=== PATIENT | male | born 2000 | race Caucasian/White ===

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

== ENCOUNTER 2022-01-15 16:23 | Emergency (ER) | payer BC, MEDICAID, SELFPAY ==
[2022-01-15 16:30] VITALS: BP 122/82; PULSE 73; RESP 13; TEMP 36.9; O2SAT 97; BMI 2831.5
--- NOTE | 2022-01-15 16:43 | USR_ITS ---
PROCEDURE INFORMATION: Exam: US Scrotum Exam date and time: 01/15/2022 4:59 PM Age: 21 years old Clinical indication: Scrotum pain; Prior surgery; Surgery date: 6+ months; Surgery type: RT testicle removed; Additional info: L testicle pain; R/O torsion, history of right testicle removal due to torsion in the past TECHNIQUE: Imaging protocol: Real-time ultrasound of the scrotum and contents with color Doppler and image documentation. COMPARISON: US Testicular [id number] 02/27/2018 6:51 PM FINDINGS: Right testicle: Status post right orchiectomy. Left testicle: Left testis measures 4.7 x 2.1 x 2.8 cm. The testis is normal in echotexture. No focal testicular lesion is demonstrated. Appropriate blood flow documented by Doppler. Epididymides: Left epididymis is unremarkable. Scrotum/soft tissues: No hydrocele or varicocele demonstrated on the left side. US/US scrotum [id number] IMPRESSION: 1. Status post right orchiectomy. 2. Sonographically normal left testis. No evidence of left testicular torsion.
--- NOTE | 2022-01-15 16:45 | ED_ITS ---
HPI - Male Genitourinary General: Chief complaint: Urogenital-Male Stated complaint: pain in testical area Time Seen by Provider: 01/15/22 16:35 Source: patient Mode of arrival: ambulatory Limitations: no limitations History of Present Illness: Patient with complaints of left testicle pain for the past 4 days. She states the pain is mild. Denies any dysuria, hematuria, penile discharge. 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 Denies any other medical problems. He takes no routine medications. He is allergic to peanuts but no medications. Denies any trauma. He states he just wants to get checked out because of his history of orchiectomy in the past for torsion. Associated symptoms: Deny nausea or vomiting Review of Systems Const: Denies: fever(s) or chills Card: Denies: chest pain Resp: Denies: dyspnea GI: Denies: abdominal pain, nausea or vomiting : Denies: flank pain Musc: Denies: back pain Skin/Breast: Denies: rash or pruritus Neuro: Denies: headache(s) or numbness in extremities PFSH ED PFSH: Family History Father Cystic acne Severe cystic acne with scarring. Social History Smoking and tobacco status: never smoked Supplemental [facility] Information: Past surgical history of right orchiectomy for torsion Physical Exam Const: COMMON NORMALS: no acute distress, patient oriented x3, alert and well nourished GENERAL APPEARANCE: cooperative HENMT: COMMON NORMALS: normocephalic and atraumatic HEAD & SCALP: normocephalic and atraumatic Eye: COMMON NORMALS: EOMs intact bilaterally Neck/C-Spine: COMMON NORMALS: full ROM and supple Lymph: OTHER: Patient with shotty mobile soft nontender lymphadenopathy in both inguinal areas. Chest: COMMONS NORMALS: normal inspection of the chest and normal palpation of entire chest wall Resp: COMMON NORMALS: normal respiratory effort, No retractions, No use of accessory muscles and clear to auscultation bilaterally AUSCULTATION: clear to auscultation bilaterally Cardio: COMMON NORMALS: regular rate, regular rhythm and Peripheral pulses 2+ throughout RATE: regular rate RHYTHM: regular rhythm PERIPHERAL PULSES: Peripheral pulses 2+ throughout GI: COMMON NORMALS: Normal to inspection, nondistended, normoactive bowel sounds present, Soft to palpation and non-tender PALPATION: Yes Soft to palpation : OTHER: Circumcised male. Penis is normal. Patient has 1 testicle on the left. No testicle on the right. Mild tenderness of the left testicle. No pain in the epididymis. No soft tissue swelling. Scrotum is normal. No hernia palpated. Extremity: COMMON NORMALS: normal to inspection and full ROM Neuro: COMMON NORMALS: patient oriented x3, CN's II-XII intact bilaterally, moves all extremities, no focal motor deficits and no sensory deficits noted SENSORIUM/ORIENTATION: Yes alert Psych: COMMON NORMALS: mental status grossly normal, Normal thought process present, cooperative, normal affect and speech normal SPEECH: Yes normal speech THOUGHT PROCESS: Normal thought process present Skin: COMMON NORMALS: no rashes or lesions noted GENERAL SKIN EXAM: no rashes or lesions noted Course Vital Signs: Vital signs: Vital Signs Temperature 98.5 F 01/15/22 16:30 Pulse Rate 73 01/15/22 16:30 Respiratory Rate 13 01/15/22 16:30 Blood Pressure 122/82 01/15/22 16:30 Pulse Oximetry 97 01/15/22 16:30 Oxygen Delivery Me thod 01/15/22 16:30 MDM - Male Medical Decision Making Orchitis versus testicular torsion versus epididymitis. Lymphadenitis not otherwise specified Lab Data Radiology Impressions Scrotum Ultrasound 01/15/22 16:43 IMPRESSION: 1. Status post right orchiectomy. 2. Sonographically normal left testis. No evidence of left testicular torsion. Laboratory Results Urine Color Dark yellow (Yellow) 01/15/22 17:05 Urine Appearance Clear (CLEAR) 01/15/22 17:05 Urine pH 5 (5-7) 01/15/22 17:05 Ur Specific [place] 1.020 (1.005-1.030) 01/15/22 17:05 Urine Protein 1+ (Negative) H 01/15/22 17:05 Urine Glucose (UA) Norm (Normal) 01/15/22 17:05 Urine Ketones 1+ (Negative) H 01/15/22 17:05 Urine Blood Neg (Negative) 01/15/22 17:05 Urine Nitrate Negative (Negative) 01/15/22 17:05 Urine Bilirubin 1+ (Negative) H 01/15/22 17:05 Urine Urobilinogen 1 mg/dL (Negative) H 01/15/22 17:05 Ur Leukocyte Esterase Trace (Negative) H 01/15/22 17:05 Urine RBC None /hpf (0-2) 01/15/22 17:05 Urine WBC 0-4 /hpf (0-5) H 01/15/22 17:05 Ur Squamous Epith Cells None /hpf (0-5) 01/15/22 17:05 Amorphous Sediment Not Reportable 01/15/22 17:05 Urine Bacteria Trace /hpf (NONE) 01/15/22 17:05 Imaging Data US: Radiologist's impression: Testicular ultrasound showed nothing acute. No evidence of torsion. Flow was normal. Discharge Plan Discharge Patient Disposition: Home Clinical Impression: Pain in left testicle Condition: Stable Prescriptions: New naproxen 375 mg tablet 375 mg PO BID PRN (Reason: pain) Qty: 14 1RF No Action clindamycin phosphate 1 % solution 1 applic topical DAILY Qty: 60 3RF Discharge Orders: Discharge ED (Routine); Ordered 01/15/22 Ordered By: Braydon Wallace Discharge Diet: Advance as tolerated Discharge Activity: Increase activity as tolerated Patient Instructions: Testicle Pain (ED) Activity Restrictions/Additional Instructions: You may have a viral infection causing left testicle pain. You have been mildly enlarged lymph nodes in your groin. Take naproxen or ibuprofen for pain. Do not take both together. Follow-up with family doctor next week if symptoms persist. Ultrasound of your testicle appeared normal. Coding Level of Care Code ED Mri Supervisor for Chg Fwd Exam Comprehensive
[2022-01-15 17:48] LABS: Bilirubin Urine 1+ (Negative); Blood Urine Neg (Negative); Glucose Urine UA Norm (Normal); Ketones Urine 1+ (Negative); Leukocyte Esterase Urine Trace (Negative); Nitrate Urine Negative (Negative); Protein Urine 1+ (Negative); Urine Appearance Clear (CLEAR); Urine Color Dark Yellow (Yellow); Urobilinogen Urine 1 mg/dL (Negative); pH Urine 5 (5-7)
[2022-01-15 17:56] LABS: Bacteria Urine TRACE /hpf; WBC Urine 0-4 /hpf (0-5)
[2022-01-15 17:57] LABS: Add Urine Culture? No
[2022-01-15 19:05] VITALS: PULSE 77; RESP 14; O2SAT 99
[2022-01-15] MEDS: ketorolac 30 mg/mL INJ IM (19:12)
[2022-01-15 19:14] VITALS: PULSE 77; RESP 14; O2SAT 99
== END 2022-01-15 19:12 | disposition home or self-care (01) ==
PROVIDERS: Emergency Provider Family Medicine
DX: N50.812 Left testicular pain (principal)
CPT/HCPCS: 76870; 81001; 87491; 87591; 96372; 99285; J1885

== ENCOUNTER 2022-09-23 16:20 | Emergency (ER) | payer MEDICAID, SELFPAY ==
[2022-09-23 16:30] VITALS: BP 150/83; PULSE 56; RESP 16; TEMP 36.7; O2SAT 98; BMI 19.0
--- NOTE | 2022-09-23 16:51 | USR_ITS ---
PROCEDURE INFORMATION: Exam: US Scrotum Exam date and time: 09/23/2022 5:32 PM Age: 22 years old Clinical indication: Scrotum pain; Prior surgery; Surgery date: 6+ months; Surgery type: RT testicle removed; Additional info: Pain/trouble urinating TECHNIQUE: Imaging protocol: Real-time ultrasound of the scrotum and contents with color Doppler and image documentation. COMPARISON: US scrotum [id number] 01/15/2022 4:59 PM FINDINGS: Right testicle: Removed Left testicle: Measures 4.7 x 2.2 x 2.8 cm. No mass. No torsion. Normal vascular flow. Epididymides: Normal. Scrotum/soft tissues: Normal. US/US scrotum [id number] IMPRESSION: There are no acute concerning abnormalities.
--- NOTE | 2022-09-23 16:51 | ED_ITS ---
Documented by User: THAIS Maldonado 09/24/22 07:51 HPI - Male Genitourinary General: Chief complaint: Urogenital-Male Stated complaint: not able to urinate Time Seen by Provider: 09/23/22 16:41 Source: patient Mode of arrival: ambulatory Limitations: no limitations History of Present Illness: Patient is a 22-year-old male who presents to ED today with complaints of vague urinary symptoms. Patient states over the past several weeks he has intermittently had times where he felt like he was not able to initiate his urine stream. He states he has experienced some urinary dribbling. He states it seems harder to urinate when he is standing and finds that often times when he sits down that he can urinate easier. He rarely has the feeling of incomplete bladder emptying although he states while at work he feels like it is even more so difficulty to urinate and thus does feel like he doesn't empty his bladder and often feels like he needs to go again shortly after voiding. Interestingly, he states that while he is at home alone he feels like urination is easier. He denies dysuria. He has not noticed any hematuria. Denies any problems with erections/ejaculation. He does report some mild left testicular tenderness. He is status post right orchidectomy from [facility] back in 2018. Complaint: other (trouble urinating) Onset (ago): week(s) Duration: intermittent Severity: mild Relieving factors: other (being at home, sitting while urinating ) Exacerbating factors: other (public places, standing) Associated symptoms: Deny dysuria, hematuria, nausea, urinary incontinence or vomiting Review of Systems Const: Denies: fever(s), chills, body aches, fatigue or malaise Card: Denies: chest pain Resp: Denies: dyspnea GI: Denies: abdominal pain, nausea, vomiting or diarrhea : Reports: difficulty urinating, urinary hesitancy, urinary dribbling, difficulty starting urination and testicular pain; Denies: flank pain, dysuria, urinary frequency, nocturia, oliguria, urinary incontinence, hematuria, genital lesions, penile discharge, testicular mass, scrotal swelling, difficulty with ejactulations, painful ejaculations, hematospermia or erectile dysfunction Musc: Denies: back pain Skin/Breast: Denies: rash Neuro: Denies: headache(s) or dizziness [facility] ED PFSH: Family History Father Cystic acne Severe cystic acne with scarring. Social History Smoking and tobacco status: never smoked Physical Exam Const: COMMON NORMALS: no acute distress, average body habitus, patient oriented x3, no limitations, healthy appearing, alert and well nourished GEN ERAL APPEARANCE: cooperative ORIENTATION/CONSCIOUSNESS: Yes awake, Yes oriented to person, Yes oriented to place and Yes oriented to time Resp: COMMON NORMALS: normal respiratory effort and clear to auscultation bilaterally AUSCULTATION: clear to auscultation bilaterally Cardio: COMMON NORMALS: regular rate and regular rhythm RATE: regular rate RHYTHM: regular rhythm GI: COMMON NORMALS: Normal to inspection, nondistended, normoactive bowel sounds present, Soft to palpation, non-tender, No hepatosplenomegaly present and no masses PALPATION: Yes Soft to palpation and Yes No hepatosplenomegaly present : COMMON NORMALS: Yes no CVA tenderness, Yes normal external exam, Yes no scrotal swelling and Yes No hernias present BLADDER/KIDNEY EXAM: Yes no CVA tenderness PENIS: normal penis and circumcised MEATUS: meatus normal SCROTUM: Yes other (previous right orchiectomy) TESTES: No testicular swell ing, Yes testicular tenderness Testicular tenderness laterality: left, No testicular mass, Yes epididymides normal and No epididymal tenderness Back/Pelvis: COMMON NORMALS: no CVA tenderness LUMBAR SPINE/LOWER BACK: No lumbar spinal tenderness and No paraspinal muscle tenderness Neuro: COMMON NORMALS: patient oriented x3 SENSORIUM/ORIENTATION: Yes alert, Yes oriented to person, Yes oriented to place and Yes oriented to time Skin: COMMON NORMALS: no rashes or lesions noted GENERAL SKIN EXAM: no rashes or lesions noted Course ED course: At this time 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 Clinically I do not appreciate any abnormalities. Care at this time is being transferred to Deepali Jewell NP pending blood work/UA/scrotal ultrasound/postvoid residual volume testing. Plan most likely will be for urology referral for further workup if indicated. Vital Signs: Vital signs: Vital Signs Temperature 98.1 F 09/23/22 16:30 Pulse Rate 56 L 09/23/22 20:35 Respiratory Rate 16 09/23/22 20:35 Blood Pressure 144/107 09/23/22 20:35 Pulse Oximetry 93 09/23/22 20:35 Oxygen Delivery Me thod Room Air 09/23/22 16:30 MDM - Male Lab Data 09/23/22 16:54 09/23/22 16:54 Radiology Impressions Scrotum Ultrasound 09/23/22 16:51 IMPRESSION: There are no acute concerning abnormalities. Laboratory Results WBC 9.4 10^3/uL (4.5-13.0) 09/23/22 16:54 RBC 4.86 10^6/uL (4.1-5.3) 09/23/22 16:54 Hgb 14.5 g/dL (11.7-16.6) 09/23/22 16:54 Hct 44.3 % (42.0-52.0) 09/23/22 16:54 MCV 91.2 fl (80-94) 09/23/22 16:54 MCH 29.8 pg (28.0-34.0) 09/23/22 16:54 MCHC 32.7 g/dL (30.0-36.0) 09/23/22 16:54 RDW 12.8 % (12.1-15.1) 09/23/22 16:54 Plt Count 339 10^3/cmm (130-400) 09/23/22 16:54 MPV 8.3 fL (7.4-10.4) 09/23/22 16:54 Neut % (Auto) 52.6 % 09/23/22 16:54 Lymph % (Auto) 32.4 % 09/23/22 16:54 [place] % (Auto) 6.4 % 09/23/22 16:54 Eos % (Auto) 8.1 % 09/23/22 16:54 Baso % (Auto) 0.3 % 09/23/22 16:54 Neut # (Auto) 4.95 10^3/uL (1.8-8.0) 09/23/22 16:54 Lymph # (Auto) 3.1 10^3/uL (1.5-6.5) 09/23/22 16:54 [place] # (Auto) 0.6 10^3/uL (0.2-0.9) 09/23/22 16:54 Eos # (Auto) 0.8 10^3/uL (0.0-0.8) 09/23/22 16:54 Baso # (Auto) 0.0 10^3/uL (0.0-0.1) 09/23/22 16:54 Nucleated RBC % (auto) 0 % 09/23/22 16:54 Nucleated RBCs # 0.0 /100WBC 09/23/22 16:54 Sodium 138 mmol/L (136-145) 09/23/22 16:54 Potassium 3.6 mmol/L (3.5-5.1) 09/23/22 16:54 Chloride 100 mmol/L (98-107) 09/23/22 16:54 Carbon Dioxide 26 mmol/L (22-29) 09/23/22 16:54 Anion Gap 15.6 (5-19) 09/23/22 16:54 BUN 16 mg/dL (6-20) 09/23/22 16:54 Creatinine 1.0 mg/dL (0.7-1.2) 09/23/22 16:54 GFR Calculation 95.3 mL/min (90-130) 09/23/22 16:54 Glucose 95 mg/dL (65-115) 09/23/22 16:54 Calculated Osmolality 287 mOsm/kg (285-295) 09/23/22 16:54 Calcium 9.6 mg/dL (8.5-10.5) 09/23/22 16:54 Total Bilirubin 0.3 mg/dL (0.15-1.2) 09/23/22 16:54 AST 36 U/L (0-40) 09/23/22 16:54 ALT 22 U/L (0-41) 09/23/22 16:54 Alkaline Phosphatase 94 U/L (40-130) 09/23/22 16:54 Total Protein 7.6 g/dL (6.6-8.7) 09/23/22 16:54 Albumin 4.6 g/dL (3.5-5.2) 09/23/22 16:54 Globulin 3.0 g/dL (1.3-4.6) 09/23/22 16:54 Urine Color Yellow (Yellow) 09/23/22 18:30 Urine Appearance Clear (CLEAR) 09/23/22 18:30 Urine pH 6.5 (5-7) 09/23/22 18:30 Ur Specific [place] 1.010 (1.005-1.030) 09/23/22 18:30 Urine Protein Neg (Negative) 09/23/22 18:30 Urine Glucose (UA) Norm (Normal) 09/23/22 18:30 Urine Ketones Negative (Negative) 09/23/22 18:30 Urine Blood Neg (Negative) 09/23/22 18:30 Urine Nitrate Negative (Negative) 09/23/22 18:30 Urine Bilirubin Neg (Negative) 09/23/22 18:30 Urine Urobilinogen Norm mg/dL (Negative) 09/23/22 18:30 Ur Leukocyte Esterase Negative (Negative) 09/23/22 18:30 Discharge Plan Discharge Patient Disposition: Home Clinical Impression: Dysuria Condition: Stable Prescriptions: No Action clindamycin phosphate 1 % solution 1 applic topical DAILY Qty: 60 3RF naproxen 375 mg tablet 375 mg PO BID PRN (Reason: pain) Qty: 14 1RF Discharge Orders: Discharge ED (Routine); Ordered 09/23/22 Ordered By: Serina Sanchez Discharge Diet: Advance as tolerated Discharge Activity: Resume usual activity Patient Instructions: Dysuria (ED), Pain Management Activity Restrictions/Additional Instructions: We have set up a case management consult. Our case planner will be working to secure a primary care as well as urology referral. Please return to the emergency department for new concerning or worsening symptoms Coding Level of Care Code ED Window Treatment Installer for Chg Fwd Documented by User: [email or web address] Christianson 09/24/22 17:15 HPI - Male Genitourinary General: Chief complaint: Urogenital-Male Stated complaint: not able to urinate Time Seen by Provider: 09/23/22 16:41 [facility] ED PFSH: Family History Father Cystic acne Severe cystic acne with scarring. Social History Smoking and tobacco status: never smoked Course Vital Signs: Vital signs: Vital Signs Temperature 98.1 F 09/23/22 16:30 Pulse Rate 56 L 09/23/22 20:35 Respiratory Rate 16 09/23/22 20:35 Blood Pressure 144/107 09/23/22 20:35 Pulse Oximetry 93 09/23/22 20:35 Oxygen Delivery Me thod Room Air 09/23/22 16:30 MDM - Male Medical Decision Making Tosin PRN OCCUPATIONAL THERAPIST assumed care at 1700. At the time of my assumption of care, patient was awaiting ultrasound scrotum results and the patient to void. Her son completed and reveals no acute findings. Initially had 297 cc on initial bladder scan. Urinalysis was collected on void and postvoid residual is 3 ml. Patient I had a discussion about his symptomology and his concerns. Ultimately he has no signs of infection, no abnormalities on ultrasound, and is not retaining any urine. I am going to set him up with a PCP referral as well as urology referral. I have asked him to return to the emergency department should he develop any new concerning or worsening symptoms. Lab Data 09/23/22 16:54 09/23/22 16:54 Radiology Impressions Scrotum Ultrasound 09/23/22 16:51 IMPRESSION: There are no acute concerning abnormalities. Laboratory Results WBC 9.4 10^3/uL (4.5-13.0) 09/23/22 16:54 RBC 4.86 10^6/uL (4.1-5.3) 09/23/22 16:54 Hgb 14.5 g/dL (11.7-16.6) 09/23/22 16:54 Hct 44.3 % (42.0-52.0) 09/23/22 16:54 MCV 91.2 fl (80-94) 09/23/22 16:54 MCH 29.8 pg (28.0-34.0) 09/23/22 16:54 MCHC 32.7 g/dL (30.0-36.0) 09/23/22 16:54 RDW 12.8 % (12.1-15.1) 09/23/22 16:54 Plt Count 339 10^3/cmm (130-400) 09/23/22 16:54 MPV 8.3 fL (7.4-10.4) 09/23/22 16:54 Neut % (Auto) 52.6 % 09/23/22 16:54 Lymph % (Auto) 32.4 % 09/23/22 16:54 [place] % (Auto) 6.4 % 09/23/22 16:54 Eos % (Auto) 8.1 % 09/23/22 16:54 Baso % (Auto) 0.3 % 09/23/22 16:54 Neut # (Auto) 4.95 10^3/uL (1.8-8.0) 09/23/22 16:54 Lymph # (Auto) 3.1 10^3/uL (1.5-6.5) 09/23/22 16:54 [place] # (Auto) 0.6 10^3/uL (0.2-0.9) 09/23/22 16:54 Eos # (Auto) 0.8 10^3/uL (0.0-0.8) 09/23/22 16:54 Baso # (Auto) 0.0 10^3/uL (0.0-0.1) 09/23/22 16:54 Nucleated RBC % (auto) 0 % 09/23/22 16:54 Nucleated RBCs # 0.0 /100WBC 09/23/22 16:54 Sodium 138 mmol/L (136-145) 09/23/22 16:54 Potassium 3.6 mmol/L (3.5-5.1) 09/23/22 16:54 Chloride 100 mmol/L (98-107) 09/23/22 16:54 Carbon Dioxide 26 mmol/L (22-29) 09/23/22 16:54 Anion Gap 15.6 (5-19) 09/23/22 16:54 BUN 16 mg/dL (6-20) 09/23/22 16:54 Creatinine 1.0 mg/dL (0.7-1.2) 09/23/22 16:54 GFR Calculation 95.3 mL/min (90-130) 09/23/22 16:54 Glucose 95 mg/dL (65-115) 09/23/22 16:54 Calculated Osmolality 287 mOsm/kg (285-295) 09/23/22 16:54 Calcium 9.6 mg/dL (8.5-10.5) 09/23/22 16:54 Total Bilirubin 0.3 mg/dL (0.15-1.2) 09/23/22 16:54 AST 36 U/L (0-40) 09/23/22 16:54 ALT 22 U/L (0-41) 09/23/22 16:54 Alkaline Phosphatase 94 U/L (40-130) 09/23/22 16:54 Total Protein 7.6 g/dL (6.6-8.7) 09/23/22 16:54 Albumin 4.6 g/dL (3.5-5.2) 09/23/22 16:54 Globulin 3.0 g/dL (1.3-4.6) 09/23/22 16:54 Urine Color Yellow (Yellow) 09/23/22 18:30 Urine Appearance Clear (CLEAR) 09/23/22 18:30 Urine pH 6.5 (5-7) 09/23/22 18:30 Ur Specific [place] 1.010 (1.005-1.030) 09/23/22 18:30 Urine Protein Neg (Negative) 09/23/22 18:30 Urine Glucose (UA) Norm (Normal) 09/23/22 18:30 Urine Ketones Negative (Negative) 09/23/22 18:30 Urine Blood Neg (Negative) 09/23/22 18:30 Urine Nitrate Negative (Negative) 09/23/22 18:30 Urine Bilirubin Neg (Negative) 09/23/22 18:30 Urine Urobilinogen Norm mg/dL (Negative) 09/23/22 18:30 Ur Leukocyte Esterase Negative (Negative) 09/23/22 18:30 Discharge Plan Discharge Patient Disposition: Home Clinical Impression: Dysuria Condition: Stable Prescriptions: No Action clindamycin phosphate 1 % solution 1 applic topical DAILY Qty: 60 3RF naproxen 375 mg tablet 375 mg PO BID PRN (Reason: pain) Qty: 14 1RF Discharge Orders: Discharge ED (Routine); Ordered 09/23/22 Ordered By: Serina Sanchez Discharge Diet: Advance as tolerated Discharge Activity: Resume usual activity Patient Instructions: Dysuria (ED), Pain Management Activity Restrictions/Additional Instructions: We have set up a case management consult. Our case planner will be working to secure a primary care as well as urology referral. Please return to the emergency department for new concerning or worsening symptoms Coding Level of Care Code ED Window Treatment Installer for Yen Cui
[2022-09-23 16:58] LABS: Basophils % 0.3 %; Eosinophils # 0.8 10^3/uL (0.0-0.8); Eosinophils % 8.1 %; Hematocrit 44.3 % (42.0-52.0); Hemoglobin 14.5 g/dL (11.7-16.6); Lymphocytes # 3.1 10^3/uL (1.5-6.5); Lymphocytes % 32.4 %; Mean Corpuscular HGB Conc 32.7 g/dL (30.0-36.0); Mean Corpuscular Hemoglobin 29.8 pg (28.0-34.0); Mean Corpuscular Volume 91.2 fl (80-94); Mean Platelet Volume 8.3 fL (7.4-10.4); Monocytes # 0.6 10^3/uL (0.2-0.9); Monocytes % 6.4 %; Neutrophils # 4.95 10^3/uL (1.8-8.0); Neutrophils % 52.6 %; Nucleated Red Blood Cells % 0 %; Platelet Count 339 10^3/cmm (130-400); Red Blood Count 4.86 10^6/uL (4.1-5.3); Red Cell Distribution Width 12.8 % (12.1-15.1); White Blood Count 9.4 10^3/uL (4.5-13.0)
[2022-09-23 17:20] LABS: Alanine Aminotransferase 22 U/L (0-41); Albumin Level 4.6 g/dL (3.5-5.2); Alkaline Phosphatase 94 U/L (40-130); Anion Gap 15.6 (5-19); Aspartate Amino Transferase 36 U/L (0-40); Blood Urea Nitrogen 16 mg/dL (6-20); Calcium 9.6 mg/dL (8.5-10.5); Carbon Dioxide 26 mmol/L (22-29); Chloride 100 mmol/L (98-107); Glomerular Filtration Rate 95.3 mL/min (90-130); Glucose 95 mg/dL (65-115); Osmolality Calculated 287 mOsm/kg (285-295); Potassium 3.6 mmol/L (3.5-5.1); Sodium 138 mmol/L (136-145); Total Bilirubin 0.3 mg/dL (0.15-1.2); Total Protein 7.6 g/dL (6.6-8.7)
[2022-09-23 19:53] LABS: Add Urine Microscopic? NO; Charge for UA Resulting for Rev
[2022-09-23 19:56] LABS: Bilirubin Urine Neg (Negative); Blood Urine Neg (Negative); Glucose Urine UA Norm (Normal); Ketones Urine Negative (Negative); Leukocyte Esterase Urine Negative (Negative); Nitrate Urine Negative (Negative); Protein Urine Neg (Negative); Urine Appearance Clear (CLEAR); Urine Color Yellow (Yellow); Urobilinogen Urine Norm (Negative); pH Urine 6.5 (5-7)
[2022-09-23 20:35] VITALS: BP 144/107; PULSE 56; RESP 16; O2SAT 93
--- NOTE | 2022-09-26 14:50 | DCPLANNER ---
slot shift manager had message to schedule a follow up appointment for patient with urology. slot shift manager spoke with patients father to confirm where the referral needed to be sent. Patients father stated to send the referral to [facility], rn case manager hospice faxed patients information to the [facility] clinic, it will be reviewed, clinic will call patient with appointment information. slot shift manager called patient due to no primary care physician, spoke with patients father, who declined at this time.
== END 2022-09-23 20:38 | disposition home or self-care (01) ==
PROVIDERS: Physician Assistant; Emergency Provider Nurse Practitioner
DX: R30.0 Dysuria (principal)
CPT/HCPCS: 36415; 51798; 76870; 80053; 81003; 85025; 99284

== ENCOUNTER 2023-02-11 07:45 | Emergency (ER) | payer MEDICAID, SELFPAY ==
--- NOTE | 2023-02-11 07:47 | ECG_ITS ---
[facility] Test Date: 2023-02-11 Pat Name: Jeremiah Balbuena Department: Room: Gender: Male Custom Miller: : 2000 Requested By: Jordyn Wong Order Number: [id number] Josephine MD: Brittany Francisco M.D. Measurements Intervals [place] Rate: 114 P: 76 HI: 134 QRS: 104 QRSD: 87 T: 63 QT: 293 QTc: 403 Interpretive Statements SINUS TACHYCARDIA POSSIBLE LEFT ATRIAL ENLARGEMENT [-0.1mV P-WAVE IN V1/V2] RIGHT AXIS DEVIATION [QRS AXIS > 100] POSSIBLE RIGHT VENTRICULAR CONDUCTION DELAY [RSR (QR) IN V1/V2] No previous ECG available for comparison Electronically Signed On 02-11-2023 18:43:26 ELECTRONIC INDUSTRI[employer]S MECHANIC by Brittany Francisco M.D. [id number]
--- NOTE | 2023-02-11 07:47 | XRR_ITS ---
PROCEDURE INFORMATION: Exam: XR Chest Exam date and time: 02/11/2023 8:05 AM Age: 22 years old Clinical indication: Pain; Chest pressure; Additional info: Cp TECHNIQUE: Imaging protocol: Radiologic exam of the chest. Views: 1 view. COMPARISON: CR XR soft tissue neck [id number] 11/28/2016 8:16 PM FINDINGS: Lungs: Lungs are clear. Pleural spaces: There is no pleural effusion or pneumothorax. Heart/Mediastinum: Cardiomediastinal contours are unremarkable. Bones/joints: Bones are unremarkable. XR/XR chest 1V portable [id number] IMPRESSION: No acute findings.
[2023-02-11 07:48] VITALS: BP 131/88; PULSE 118; RESP 18; TEMP 37; O2SAT 93; BMI 19.6
--- NOTE | 2023-02-11 07:56 | ED_ITS ---
HPI - COVID 2 General: Chief Complaint: COVID symptoms Stated Complaint: chest pain,sob Time Seen by Provider: 02/11/23 07:47 Source: patient Mode of arrival: ambulatory Limitations: no limitations History of Present Illness: 22-year-old male states for last 2 days has had cough congestion and has had low-grade fevers. States that he has had some worsening dyspnea along with wheezing he states he feels like he cannot get a breath then. He is having some sharp pains he states after coughing. Denies vomiting denies diarrhea he is in no distress here. COVID 19 common symptoms: positive non-productive cough and dyspnea; negative fever(s), chills, body aches, headache(s), throat pain, nausea, vomiting or diarrhea COVID 19 other sytmptoms: positive chest pain COVID Results: 2 SARS-CoV-2 Antigen (Rapid) negative (Negative) 02/11/23 08:30 Review of Systems 2 Const: Denies: fever(s), chills, body aches or change in appetite ENMT: Denies: throat pain or dental pain Card: Reports: chest pain Resp: Reports: dyspnea, non-productive cough and wheezing GI: Denies: abdominal pain, nausea, vomiting or diarrhea : Denies: dysuria Musc: Denies: neck pain or back pain Skin/Breast: Denies: rash Neuro: Denies: headache(s) PFSH ED 2 PFSH: Family History Father Cystic acne Severe cystic acne with scarring. Social History Smoking and tobacco/nicotine status: current every day tobacco/nicotine user Substance/Drug Use: current Substance/Drug use frequency: daily Physical Exam 2 Const: COMMON NORMALS: no acute distress, patient oriented x3 and healthy appearing HENMT: COMMON NORMALS: normocephalic and atraumatic HEAD & SCALP: n ormocephalic and atraumatic Eye: COMMON NORMALS: Equal, round and reactive pupils present and EOMs intact bilaterally PUPIL: Yes Equal, round and reactive pupils present Neck/C-Spine: COMMON NORMALS: full ROM and supple Chest: COMMONS NORMALS: normal inspection of the chest Resp: COMMON NORMALS: normal respiratory effort, No retractions and No use of accessory muscles EFFORT & INSPECTION: Yes audible wheezes AUSCULTATION: w heezes Cardio: COMMON NORMALS: regular rate, regular rhythm and No murmurs present (Cardio) RATE: regular rate RHYTHM: regular rhythm Extremity: COMMON NORMALS: normal to inspection and full ROM Neuro: COMMON NORMALS: patient oriented x3, moves all extremities and no focal motor deficits Psych: COMMON NORMALS: mental status grossly normal, Normal thought process present and cooperative THOUGHT PROCESS: Normal thought process present Skin: COMMON NORMALS: no rashes or lesions noted and no wounds GENERAL SKIN EXAM: no rashes or lesions noted Course 2 Vital Signs: Vital signs: Vital Signs Temperature 98.6 F 02/11/23 07:48 Pulse Rate 87 02/11/23 09:47 Respiratory Rate 16 02/11/23 09:47 Blood Pressure 121/70 02/11/23 09:47 Pulse Oximetry 92 02/11/23 09:47 Oxygen Delivery Me thod Room Air 02/11/23 09:47 MDM - COVID Medical Decision Making Patient presents here with upper respiratory infection. Chest x-ray here is negative he feels much improved here after breathing treatment did give him Decadron he is stable for discharge we will place him on an albuterol inhaler he is follow-up with PCP and return if worsening. Medical Records I reviewed the patient's medical records. Lab Data I reviewed the patient's lab results. 02/11/23 08:05 02/11/23 08:05 Radiology Impressions Chest X-Ray 02/11/23 07:47 IMPRESSION: No acute findings. Laboratory Results WBC 12.52 10^3/uL (4.5-13.0) 02/11/23 08:05 RBC 5.67 10^6/uL (3.85-5.65) H 02/11/23 08:05 Hgb 17.00 g/dL (13.2-15.6) H 02/11/23 08:05 Hct 49.4 % (37-53) 02/11/23 08:05 MCV 87.1 fl (82-101) 02/11/23 08:05 MCH 30.0 pg (27-33) 02/11/23 08:05 MCHC 34.4 g/dL (30-55) 02/11/23 08:05 RDW 11.9 % (12.1-15.1) L 02/11/23 08:05 Plt Count 371 10^3/cmm (157-399) 02/11/23 08:05 MPV 8.8 fL (7.4-10.4) 02/11/23 08:05 Neut % (Auto) 62.6 % 02/11/23 08:05 Lymph % (Auto) 18.0 % 02/11/23 08:05 Winn % (Auto) 9.9 % 02/11/23 08:05 Eos % (Auto) 9.1 % 02/11/23 08:05 Baso % (Auto) 0.2 % 02/11/23 08:05 Neut # (Auto) 7.83 10^3/uL (1.8-8.0) 02/11/23 08:05 Lymph # (Auto) 2.3 10^3/uL (1.5-6.5) 02/11/23 08:05 Winn # (Auto) 1.2 10^3/uL (0.2-0.9) H 02/11/23 08:05 Eos # (Auto) 1.1 10^3/uL (0.0-0.8) H 02/11/23 08:05 Baso # (Auto) 0.0 10^3/uL (0.0-0.1) 02/11/23 08:05 Nucleated RBC % (auto) 0 % 02/11/23 08:05 Nucleated RBCs # 0.0 /100WBC 02/11/23 08:05 Sodium 139 mmol/L (136-145) 02/11/23 08:05 Potassium 4.3 mmol/L (3.5-5.1) 02/11/23 08:05 Chloride 98 mmol/L (98-107) 02/11/23 08:05 Carbon Dioxide 27 mmol/L (22-29) 02/11/23 08:05 Anion Gap 18.3 (5-19) 02/11/23 08:05 BUN 13 mg/dL (6-20) 02/11/23 08:05 Creatinine 1.4 mg/dL (0.7-1.2) H 02/11/23 08:05 GFR Calculation 64.6 mL/min (90-130) L 02/11/23 08:05 Glucose 112 mg/dL (65-115) 02/11/23 08:05 Calculated Osmolality 289 mOsm/kg (285-295) 02/11/23 08:05 Calcium 10.3 mg/dL (8.5-10.5) 02/11/23 08:05 Total Bilirubin 0.4 mg/dL (0.15-1.2) 02/11/23 08:05 AST 46 U/L (0-40) H 02/11/23 08:05 ALT 40 U/L (0-41) 02/11/23 08:05 Alkaline Phosphatase 101 U/L (40-130) 02/11/23 08:05 Total Protein 9.0 g/dL (6.6-8.7) H 02/11/23 08:05 Albumin 4.9 g/dL (3.5-5.2) 02/11/23 08:05 Globulin 4.1 g/dL (1.3-4.6) 02/11/23 08:05 Influenza Type A Ag negative (Negative) 02/11/23 08:30 Influenza Type B Ag negative (Negative) 02/11/23 08:30 SARS-CoV-2 Ag (Rapid) negative (Negative) 02/11/23 08:30 2 SARS-CoV-2 Antigen (Rapid) negative (Negative) 02/11/23 08:30 All radiology interpretation(s) finalized by discharge EKG Data EKG 1: I personally reviewed and interpreted this EKG as follows: EKG interpretation date: 02/11/23 EKG interpretation time: 07:49 Interpretation: sinus tach hr [address] or t wave abnormalities qrs 87 qtc 360 Discharge Plan Discharge Patient Disposition: Home Clinical Impression: Upper respiratory infection Qualifiers: URI type: unspecified URI Qualified Code(s): J06.9 - Acute upper respiratory infection, unspecified Condition: Stable Prescriptions: Continued Ventolin HFA 90 mcg/actuation HFA aerosol inhaler 2 puff inhalation Q6H PRN (Reason: shortness of breath or wheezing) Qty: 8.5 0RF No Action azithromycin 250 mg tablet See Rx Instructions PO .COMPLEX Qty: 6 0RF Rx Instructions: take 500 mg today (day 1), then 250 mg for 4 days (days 2-5) PO prednisone 20 mg tablet 20 mg PO DAILY 5 Days Qty: 5 0RF Discharge Orders: Discharge ED (Routine); Ordered 02/11/23 Ordered By: Jordyn Wong Discharge Diet: Advance as tolerated Discharge Activity: Resume usual activity Patient Instructions: Upper Respiratory Infection (ED) Coding Level of Care Code ED Trim Machine Adjuster for Yen Cui
[2023-02-11 08:13] VITALS: O2SAT 93
[2023-02-11] MEDS: albuterol 2.5 mg/3 mL Neb INHALATION (08:13)
[2023-02-11 08:15] VITALS: PULSE 113; RESP 18; O2SAT 95
[2023-02-11] MEDS: ipratropium-albuterol 3 mL Neb INHALATION (08:15)
[2023-02-11 08:18] VITALS: PULSE 120
[2023-02-11 08:20] LABS: Basophils % 0.2 %; Eosinophils # 1.1 10^3/uL (0.0-0.8); Eosinophils % 9.1 %; Hematocrit 49.4 % (37-53); Lymphocytes # 2.3 10^3/uL (1.5-6.5); Mean Corpuscular HGB Conc 34.4 g/dL (30-55); Mean Corpuscular Volume 87.1 fl (82-101); Mean Platelet Volume 8.8 fL (7.4-10.4); Monocytes # 1.2 10^3/uL (0.2-0.9); Monocytes % 9.9 %; Neutrophils # 7.83 10^3/uL (1.8-8.0); Neutrophils % 62.6 %; Nucleated Red Blood Cells % 0 %; Platelet Count 371 10^3/cmm (157-399); Red Blood Count 5.67 10^6/uL (3.85-5.65); Red Cell Distribution Width 11.9 % (12.1-15.1); White Blood Count 12.52 10^3/uL (4.5-13.0)
[2023-02-11] MEDS: sodium chloride 0.9% 1,000 ML 999 ML IV (08:28)
[2023-02-11] MEDS: dexamethasone 10 mg/mL INJ IVP (08:29)
[2023-02-11 08:49] LABS: Alanine Aminotransferase 40 U/L (0-41); Albumin Level 4.9 g/dL (3.5-5.2); Alkaline Phosphatase 101 U/L (40-130); Anion Gap 18.3 (5-19); Aspartate Amino Transferase 46 U/L (0-40); Blood Urea Nitrogen 13 mg/dL (6-20); Calcium 10.3 mg/dL (8.5-10.5); Carbon Dioxide 27 mmol/L (22-29); Chloride 98 mmol/L (98-107); Globulin 4.1 g/dL (1.3-4.6); Glomerular Filtration Rate 64.6 mL/min (90-130); Glucose 112 mg/dL (65-115); Osmolality Calculated 289 mOsm/kg (285-295); Potassium 4.3 mmol/L (3.5-5.1); Sodium 139 mmol/L (136-145); Total Bilirubin 0.4 mg/dL (0.15-1.2)
--- NOTE | 2023-02-11 09:05 | PC.NURSE ---
RN ASSUMED CARE AT THIS TIME
[2023-02-11 09:47] VITALS: BP 121/70; PULSE 87; RESP 16; O2SAT 92
[2023-02-11 09:54] LABS: Influenza A by IFA negative (Negative); Influenza B by IFA negative (Negative); SARS Covid-2 Antigen negative (Negative)
== END 2023-02-11 10:22 | disposition home or self-care (01) ==
PROVIDERS: Emergency Provider Emergency Medicine
DX: J06.9 Acute upper respiratory infection, unspecified (principal); Z11.52 Encounter for screening for COVID-19; Z72.0 Tobacco use
CPT/HCPCS: 71045; 80053; 85025; 87426; 87804; 93005; 94640; 96361; 96374; 99285; J1100; J7030; J7613

== ENCOUNTER → 2023-09-21 08:28 | Outpatient (BNVA) | payer MEDICAID, SELFPAY | PROVIDERS: Visit Provider Internal Medicine | DX: D75.1 Secondary polycythemia (principal); I10 Essential (primary) hypertension | CPT/HCPCS: 99204 ==

== ENCOUNTER 2023-09-28 09:06 | Outpatient (CLI) | payer MEDICAID, SELFPAY ==
[2023-09-28 09:51] LABS: Basophils % 0.3 %; Eosinophils # 0.9 10^3/uL (0.0-0.8); Eosinophils % 11.6 %; Hematocrit 43.2 % (37-53); Lymphocytes # 2.8 10^3/uL (0.8-4.8); Lymphocytes % 35.7 %; Mean Corpuscular Hemoglobin 30.4 pg (27-33); Mean Corpuscular Volume 89.3 fl (82-101); Mean Platelet Volume 8.4 fL (7.4-10.4); Monocytes # 0.5 10^3/uL (0.2-0.9); Monocytes % 6.2 %; Neutrophils # 3.56 10^3/uL (1.8-7.7); Neutrophils % 46.1 %; Nucleated Red Blood Cells % 0 %; Platelet Count 387 10^3/cmm (157-399); Red Blood Count 4.84 10^6/uL (3.85-5.65); Red Cell Distribution Width 12.4 % (12.1-15.1); White Blood Count 7.73 10^3/uL (3.29-11.43)
[2023-09-28 10:25] LABS: Alanine Aminotransferase 20 U/L (0-41); Albumin Level 4.7 g/dL (3.5-5.2); Alkaline Phosphatase 99 U/L (40-130); Aspartate Amino Transferase 23 U/L (0-40); Blood Urea Nitrogen 11 mg/dL (6-20); Calcium 9.5 mg/dL (8.5-10.5); Carbon Dioxide 28 mmol/L (22-29); Globulin 3.3 g/dL (1.3-4.6); Glomerular Filtration Rate 94.3 mL/min (90-130); Glucose 103 mg/dL (65-115); Prostate Specific Antigen Scr 0.47 ng/mL (0-4); Testosterone Total 344.6 ng/dL (249-836); Total Bilirubin 0.4 mg/dL (0.15-1.2)
[2023-09-28 10:54] LABS: Follicle Stimulating Hormone 9.1 mIU/mL (1.5-12.4); Luteinizing Hormone 4.6 mIU/mL (1.7-8.6)
[2023-09-28 11:11] LABS: Anion Gap 16.8 (5-19); Chloride 104 mmol/L (98-107); Osmolality Calculated 300 mOsm/kg (285-295); Potassium 3.8 mmol/L (3.5-5.1); Sodium 145 mmol/L (136-145)
[2023-10-03 15:39] LABS: Testosterone, Free 36.8 pg/mL (46.0-224.0)
== END 2023-09-28 09:07 | disposition home or self-care (01) ==
LOC: LAB 09:09
PROVIDERS: Visit Provider Internal Medicine
DX: D75.1 Secondary polycythemia (principal); I10 Essential (primary) hypertension
CPT/HCPCS: 36415; 80053; 83001; 83002; 84402; 84403; 85025; G0103

== ENCOUNTER 2024-10-22 13:25 | Emergency (ER) | payer SELFPAY ==
--- OUTSIDE RECORDS SUMMARY | 2011-08-01 08:50 | XMS_ITS | Continuity of Care Document ---
Author Organization [facility] Address [address] [place] [address] Phone Care Team Providers Care Diamond Die Driller Name Role Phone Jose Francisco Ho MD Unavailable Unavailable Allergies, Adverse Reactions, Alerts Substance Reaction Status Criticality No Known allergies Advance Directives Directive Yes / No Effective Date File Name No Information Encounters Encounter Description Practice Location Reason(s) For Visit Diagnoses Date Provider Providers Copied on Encounter [facility] , [address], [address], tel:[phone] [facility] Lt BBFAfx w/manipulat ion (chief complaint) Fracture of shaft of radius with ulna, closed Vic Felton. [address], [place], [place], [id number]. tel:[phone] Referring Provider: Ayan Pearson [address], [place], [address] . tel:[phone] [facility] , [address] [address], [place], [address], tel:[phone] [facility] Fracture of lower end of radius with ulna, closed Vic Felton. [address], [place], [place], [id number]. tel:[phone] Referring Provider: Ayan Pearson [address] [facility] [address], [place], [address] . tel:[phone] Family History Family Member Type Diagnosis Age At Onset Problem (finding) Family history of hyper tension Payers Payer name Insurance type Covered constitution party ID Authoriza tion(s) No Information Social History Type Description Quantity Date Captured Comments Sex Male Smoking Status No Information Chief Complaint And Reason For Visit From encounter dated '08/01/2011 13:50'. Lt BBFAfx w/manipulation (chief complaint) Reason For Referral Reason For Referral No Information Plan Of Treatment Date Type Action Status Referral Ordered: RADEX F/ARM 2 VIEWS LT ordered History Of Present Illness Encounter Date Complaint History Of Prese nt Illness No Information Functional Status Date Functional Assessmen t No Information Instructions Date Instruction Additional Infor mation No Information Assessments Type Assessment Date No Information Patient Care Teams Name Effective Dates (start - stop) Status Members No Information
[2024-10-22 13:29] VITALS: BP 116/73; PULSE 93; RESP 16; TEMP 36.8; O2SAT 97; BMI 19.1
--- OUTSIDE RECORDS SUMMARY | 2024-10-22 13:34 | XMS_ITS | Encounter Summary ---
Author Organization [facility] Address [address] [place] [address] Care Team Providers Care Sheet Writer Name Role Phone Ayan Pearson MD Primary Care Provider Tammy vailable Encounter Details Date Type Department Care Team (Late st Contact Info) Description 2000 Outpatient [facility] 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
--- OUTSIDE RECORDS SUMMARY | 2024-10-22 13:34 | XMS_ITS | Encounter Summary ---
Author Organization [facility] Address [address] [place] [address] Care Team Providers Care Last Repairer Helper Name Role Phone Ayan Pearson MD Primary Care Provider Tammy vailable Encounter Details Date Type Department Care Team (Late st Contact Info) Description 05/21/2003 Outpatient Historical [facility] [address] 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
--- OUTSIDE RECORDS SUMMARY | 2024-10-22 13:34 | XMS_ITS | Encounter Summary ---
Author Organization [facility] Address 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
--- OUTSIDE RECORDS SUMMARY | 2024-10-22 13:34 | XMS_ITS | Encounter Summary ---
Author Organization [facility] Address [address] [place] [address] Care Team Providers Care Animal Geneticist Name Role Phone Ayan Pearson MD Primary Care Provider Tammy vailable Encounter Details Date Type Department Care Team (Late st Contact Info) Description 07/18/2006 Outpatient Historical [facility] [address] 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
--- OUTSIDE RECORDS SUMMARY | 2024-10-22 13:34 | XMS_ITS | Encounter Summary ---
Author Organization [facility] Address [address] [place] [address] Care Team Providers Care Therapeutic Riding Instructor Name Role Phone Ayan Pearson MD Primary Care Provider Tammy vailable Encounter Details Date Type Department Care Team (Late st Contact Info) Description 2002 Outpatient Historical [facility] [address] 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
--- OUTSIDE RECORDS SUMMARY | 2024-10-22 13:34 | XMS_ITS | Encounter Summary ---
Author Organization [facility] Address [address] [place] [address] Care Team Providers Care Online Journalist Name Role Phone Ayan Pearson MD Primary Care Provider Tammy vailable Encounter Details Date Type Department Care Team (Late st Contact Info) Description 05/25/2006 Outpatient Historical [facility] [address] 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
--- OUTSIDE RECORDS SUMMARY | 2024-10-22 13:34 | XMS_ITS | Encounter Summary ---
Author Organization [facility] Address [address] [place] [address] Care Team Providers Care Potato Chip Processing Supervisor Name Role Phone Ayan Pearson MD Primary Care Provider Tammy vailable Encounter Details Date Type Department Care Team (Late st Contact Info) Description 02/04/2003 Outpatient Historical [facility] [address] 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
--- OUTSIDE RECORDS SUMMARY | 2024-10-22 13:34 | XMS_ITS | Encounter Summary ---
Author Organization [facility] Address [address] [place] [address] Care Team Providers Care Group Sales Manager Name Role Phone Ayan Pearson MD Primary Care Provider Tammy vailable Encounter Details Date Type Department Care Team (Late st Contact Info) Description 08/18/2003 Outpatient Historical [facility] [address] 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
--- OUTSIDE RECORDS SUMMARY | 2024-10-22 13:34 | XMS_ITS | Encounter Summary ---
Author Organization [facility] Address [address] [place] [address] Care Team Providers Care Contaminated Land Consultant Name Role Phone Ayan Pearson MD Primary Care Provider Tammy vailable Encounter Details Date Type Department Care Team (Late st Contact Info) Description 2002 Outpatient Historical [facility] 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
--- OUTSIDE RECORDS SUMMARY | 2024-10-22 13:34 | XMS_ITS | Encounter Summary ---
Author Organization [facility] Address [address] [place] [address] Care Team Providers Care Net Fisher Name Role Phone Ayan Pearson MD Primary Care Provider Tammy vailable Encounter Details Date Type Department Care Team (Late st Contact Info) Description 03/08/2004 Outpatient Historical [facility] [address] 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
--- OUTSIDE RECORDS SUMMARY | 2024-10-22 13:34 | XMS_ITS | Encounter Summary ---
Author Organization [facility] Address [address] [place] [address] Care Team Providers Care Health Care Marketing Manager Name Role Phone Ayan Pearson MD Primary Care Provider Tammy vailable Encounter Details Date Type Department Care Team (Late st Contact Info) Description 01/21/2003 Outpatient Historical [facility] [address] 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
--- OUTSIDE RECORDS SUMMARY | 2024-10-22 13:34 | XMS_ITS | Encounter Summary ---
Author Organization [facility] Address [address] [place] [address] Care Team Providers Care Line Lead Name Role Phone Ayan Pearson MD Primary Care Provider Tammy vailable Encounter Details Date Type Department Care Team (Late st Contact Info) Description 2002 Outpatient Historical [facility] 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
--- OUTSIDE RECORDS SUMMARY | 2024-10-22 13:34 | XMS_ITS | Encounter Summary ---
Author Organization [facility] Address [address] [place] [address] Care Team Providers Care Engine House Helper Name Role Phone Ayan Pearson MD Primary Care Provider Tammy vailable Encounter Details Date Type Department Care Team (Late st Contact Info) Description 08/22/2006 Outpatient Historical [facility] [address] 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
--- OUTSIDE RECORDS SUMMARY | 2024-10-22 13:34 | XMS_ITS | Encounter Summary ---
Author Organization [facility] Address [address] [place] [address] Care Team Providers Care Appliance Tester Name Role Phone Ayan Pearson MD Primary Care Provider Tammy vailable Encounter Details Date Type Department Care Team (Late st Contact Info) Description 03/23/2004 Outpatient Historical [facility] [phone] 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
--- OUTSIDE RECORDS SUMMARY | 2024-10-22 13:34 | XMS_ITS | Encounter Summary ---
Author Organization [facility] Address [address] [place] [address] Care Team Providers Care Tripe Cooker Name Role Phone Ayan Pearson MD Primary Care Provider Tammy vailable Encounter Details Date Type Department Care Team (Late st Contact Info) Description 2002 Outpatient Historical [facility] [phone] 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
--- OUTSIDE RECORDS SUMMARY | 2024-10-22 13:34 | XMS_ITS | Encounter Summary ---
Author Organization [facility] Address 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
--- OUTSIDE RECORDS SUMMARY | 2024-10-22 13:34 | XMS_ITS | Encounter Summary ---
Author Organization [facility] Address 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
--- OUTSIDE RECORDS SUMMARY | 2024-10-22 13:34 | XMS_ITS | Encounter Summary ---
Author Organization [facility] Address [address] [place] [address] Care Team Providers Care Hydro Plant Operator Name Role Phone Ayan Pearson MD Primary Care Provider Tammy vailable Encounter Details Date Type Department Care Team (Late st Contact Info) Description 06/07/2006 Outpatient Historical [facility] [phone] 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
--- OUTSIDE RECORDS SUMMARY | 2024-10-22 13:34 | XMS_ITS | Encounter Summary ---
Author Organization [facility] Address [address] [place] [address] Care Team Providers Care Pre Fabricator Name Role Phone Ayan Pearson MD Primary Care Provider Tammy vailable Encounter Details Date Type Department Care Team (Late st Contact Info) Description 2002 Outpatient Historical [facility] 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
--- OUTSIDE RECORDS SUMMARY | 2024-10-22 13:34 | XMS_ITS | Encounter Summary ---
Author Organization [facility] Address [address] [place] [address] Care Team Providers Care Wire Drawing Setter Name Role Phone Ayan Pearson MD Primary Care Provider Tammy vailable Encounter Details Date Type Department Care Team (Late st Contact Info) Description 05/29/2003 Outpatient Historical [facility] [phone] 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
--- OUTSIDE RECORDS SUMMARY | 2024-10-22 13:34 | XMS_ITS | Encounter Summary ---
Author Organization [facility] Address [address] [place] [address] Care Team Providers Care Assembler Rubber Footwear Name Role Phone Ayan Pearson MD Primary Care Provider Tammy vailable Encounter Details Date Type Department Care Team (Late st Contact Info) Description 2002 Outpatient Historical [facility] 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 Gender Identity Not on file Sexual Orientation Not on file documented as of this encounter Plan of Treatment Not on file documented as of this encounter Procedures Procedure Name Priority Date/Time Associated Diagnosis Comments CHG DTAP VACCINE <7 YO IM VFC 2002 12:00 AM CDT CHG PNEUMOCOCCAL VACCINE <5 YO IM VFC 2002 12:00 AM CDT CHG HIB PRP-T VACCINE IM 4 DOSE VFC 2002 12:00 AM CDT documented in this encounter Visit Diagnoses Not on filedocumented in this encounter Care Teams Assembler Rubber Footwear Relationship Specialty Start Date End Date Ayan Pearson MD NO ADDRESS ON FILE PCP - General 02 12/26/18 documented as of this encounter
--- OUTSIDE RECORDS SUMMARY | 2024-10-22 13:34 | XMS_ITS | Encounter Summary ---
Author Organization [facility] Address [address] [place] [address] Care Team Providers Care Housing Officer Name Role Phone Ayan Pearson MD Primary Care Provider Tammy vailable Encounter Details Date Type Department Care Team (Late st Contact Info) Description 2002 Outpatient Historical [facility] 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
--- OUTSIDE RECORDS SUMMARY | 2024-10-22 13:34 | XMS_ITS | Encounter Summary ---
Author Organization [facility] Address [address] [place] [address] Care Team Providers Care Associate Director Regulatory Affairs Name Role Phone Ayan Pearson MD Primary Care Provider Tammy vailable Encounter Details Date Type Department Care Team (Late st Contact Info) Description 01/26/2004 Outpatient Historical [facility] [phone] 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
--- OUTSIDE RECORDS SUMMARY | 2024-10-22 13:34 | XMS_ITS | Encounter Summary ---
Author Organization [facility] Address [address] [place] [address] Care Team Providers Care Science Liaison Name Role Phone Ayan Pearson MD Primary Care Provider Tammy vailable Encounter Details Date Type Department Care Team (Late st Contact Info) Description 01/23/2006 Outpatient Historical [facility] [address] 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
--- OUTSIDE RECORDS SUMMARY | 2024-10-22 13:34 | XMS_ITS | Encounter Summary ---
Author Organization [facility] Address [address] [place] [address] Care Team Providers Care Sandwich Hand Name Role Phone Ayan Pearson MD Primary Care Provider Tammy vailable Encounter Details Date Type Department Care Team (Late st Contact Info) Description 2002 Outpatient Historical [facility] [address] 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
--- OUTSIDE RECORDS SUMMARY | 2024-10-22 13:34 | XMS_ITS | Clinical Summary ---
Author Organization [facility] [address] Address [address] [place] [address] Care Team Providers Care Tier Over Name Role Phone Unavailable Primary Care Provider Unavailabl e Allergies Active Allergy Reactions Criticality Noted Date Comments Peanut Swelling Low Medications No known medications Active Problems No known active problems Immunizations Immunization Administration Dates Next Due (INFANRIX)(6 WKS-6 YRS) DIPT HERIA, TETANUS TOXOIDS, AND ACCELLULAR PERTUSSIS VACCINE (DTAP), 0.5 ML IM 03/23/2004,2002,2002,2002 (IPOL)(6 WKS AND UP) POLIOVI ROCKY VACCINE, INACTIVATED (IPV), 3 DOSE, SUBCUT OR IM 03/23/2004,2002,2002 (M-M-R II/PRIORIX)(12 MO UP) MEASLES, MUMPS AND RUBELLA VIRUS VACCINE, 0.5 ML IM/SUBCUT 05/29/2003 (VARIVAX)(12 MOS UP)VARICELL A VIRUS VACCINE (PF) 0.5 ML, SUB CUT 05/29/2003 HIB, Unspecified Formulation 03/23/2004,11/05/19 03,2002 Hepatitis A Vaccine 06/07/2006 Hepatitis B Vaccine 05/29/2003,2002,2002 Hepatitis B and Haemophilus Influenzae Type B Vaccine (Hib-HepB)IM 2002 Pneumococcal 7-valent conjug ate vaccine IM 10/05/2004,2002,2002 Family History Medical History Relation Name Comments Healthy Brother 1 brother 1 Healthy Brother 2 brother 2 Healthy Father Healthy Maternal Grandfather Hypertension Maternal Grandfather Healthy Maternal Grandmother Healthy Mother Healthy Paternal Grandfather Healthy Paternal Grandmother Relation Name Status Comments Brother 1 brother 1 Alive Brother 2 brother 2 Alive Father Alive Maternal Grandfather Alive Maternal Grandmother Alive Mother Alive Paternal Grandfather Alive Paternal Grandmother Alive Social History Tobacco Use Types Packs/Day Years Used Date Smoking Tobacco: Never Smokeless Tobacco: Never Sex and Gender Information Value Date Recorded Sex Assigned at Not on file 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 Gender Identity Not on file Sexual Orientation Not on file Last Filed Vital Signs Vital Sign Reading Time Taken Comments Blood Pressure 105/60 11/29/2016 3:31 AM CDT Pulse 84 05/23/2012 9:14 AM CDT Temperature 36.9 C (98.4 F) 11/29/2016 12:59 AM CDT Respiratory Rate 18 11/29/2016 3:31 AM CDT Oxygen Saturation - - Inhaled Oxygen Concentration - - Weight 46.7 kg (103 lb) 11/29/2016 12:59 AM CDT Height 162.6 cm (5' 4 ) 11/29/2016 12:59 AM CDT Body Mass Index 17.68 11/29/2016 12:59 AM CDT Plan of Treatment Health Maintenance Due Date Last Done Comments DTAP/TDAP/TD VACCINES (5 - Tdap) 2013 03/23/2004, 2002, 2002, Additional history exists HPV VACCINES (1 - Male 3-dos e series) 2017 INFLUENZA VACCINE (#1) 2024 HEPATITIS B VACCINES Completed 05/29/2003, 2002, 2002, Additional history exists [place] [address] MEDICAID
--- OUTSIDE RECORDS SUMMARY | 2024-10-22 13:34 | XMS_ITS | Encounter Summary ---
Author Organization [facility] Address [address] [place] [address] Care Team Providers Care Brakeshoe Repairer Name Role Phone Ayan Pearson MD Primary Care Provider Tammy vailable Encounter Details Date Type Department Care Team (Late st Contact Info) Description 2002 Outpatient Historical [facility] [address] [address] 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
--- OUTSIDE RECORDS SUMMARY | 2024-10-22 13:34 | XMS_ITS | Clinical Summary ---
Author Organization [facility] Address [address] [place] [address] Phone Care Team Providers Care Cook Larder Name Role Phone Unavailable Primary Care Provider Unavailabl e Allergies No known active allergies Medications No known medications Social History Tobacco Use Types Packs/Day Years Used Date Smoking Tobacco: Never Smokeless Tobacco: Never Sex and Gender Information Value Date Recorded Sex Assigned at Not on file Legal Sex Male 12:50 AM CDT Gender Identity Not on file Sexual Orientation Not on file Last Filed Vital Signs Vital Sign Reading Time Taken Comments Blood Pressure 105/60 11/29/2016 3:31 AM CDT Pulse - - Temperature 36.9 C (98.4 F) 11/29/2016 12:59 AM CDT Respiratory Rate 18 11/29/2016 3:31 AM CDT Oxygen Saturation 98% 11/29/2016 3:31 AM CDT Inhaled Oxygen Concentration - - Weight 46.7 kg (103 lb) 11/29/2016 12:59 AM CDT Height 162.6 cm (5' 4 ) 11/29/2016 12:59 AM CDT Body Mass Index 17.68 11/29/2016 12:59 AM CDT Plan of Treatment Health Maintenance Due Date Last Done Comments HPV VACCINES (1 - Male 3-dose series) 2017 DTAP/TDAP/TD VACCINES (1 - Tdap) 2021 HEPATITIS B VACCINES (1 of 3 - 19+ 3-dose series) 03/30 INFLUENZA VACCINE (#1) 2024 Insurance [facility] MEDICAID
--- NOTE | 2024-10-22 14:31 | ED_ITS ---
HPI - General Adult General: Chief complaint: General Medical Stated complaint: right side numbness Time Seen by Provider: 10/22/24 13:53 Source: patient Mode of arrival: ambulatory Limitations: no limitations History of Present Illness: Presented 24-year-old male presents to ED today for medical evaluation. He states he has two separate complaints of which he is not sure if they are related. He states over the past few months he has noticed intermittent episodes of numbness and tingling throughout various parts of his body. He states he will sometimes have right arm numbness. He sometimes has numbness to the left hand and wrist but sometimes feels like this is related to positioning on a videogame controller. He has noticed numbness to the right leg at times mainly when the right leg is kicked up in a particular position. He will sometimes have numbness to the right side of his lip. He feels like these episodes of tingling are brief sometimes only lasting 10 seconds or so . In between episodes he is completely asymptomatic. Has not noticed any weakness to extremities. He has noticed over the past 2 days like he has a lump in his throat . He has not noticed any palpable mass or swelling. He is not having any difficulty swallowing or breathing. No foreign body sensation. No hoarseness. Patient clinically appears no acute distress with stable vital signs upon arrival. He states he does not have a primary care provider. Onset (ago): unknown (two complaints with differing chronicity) Location: face, neck, left, right, upper extremity and lower extremity Severity: mild Relieving factors: none Exacerbating factors: none Associated symptoms: Reports no associated symptoms; Deny chest pain, dyspnea, headache(s), malaise, rash, palpitations, syncope or vomiting Treatments prior to arrival: none Related Data Previous Rx's ?Medication ?Instructions ?Recorded albuterol sulfate 90 mcg/actuation 2 puff inhalation Q 6H PRN 02/11/23 aerosol inhaler (Ventolin HFA) shortness of breath or wheezing #8.5 grams Allergies Allergy/AdvReac Type Severity Reaction Status Date / Time peanut Allergy Unknown Unknown Verified 10/22/24 13:36 Review of Systems Const: Denies: fever(s), chills, body aches, change in appetite, change in weight, fatigue or malaise Eyes: Denies: change in vision, blurry vision, photophobia, floaters or seeing flashes ENMT: Reports: other ( lump in throat ); Denies: throat pain, uvular edema, enlarged tonsils, odynophagia, hoarseness, mouth pain, swelling of lips/tongue, oral sores or dental pain Card: Denies: chest pain, palpitations, irregular heart rhythm, edema, swelling of feet/ankles, lightheadedness, syncope, pre-syncope, dyspnea on exertion or orthopnea Resp: Denies: dyspnea GI: Denies: abdominal pain, vomiting or change in bowel habits Musc: Denies: neck pain, back pain, extremity pain, extremity swelling, joint pain, joint swelling or joint redness Skin/Breast: Denies: rash Neuro: Denies: headache(s), numbness in extremities, weakness in extremities, sensory changes, difficulty walking, dizziness, behavioral changes or seizure- like activity PFSH ED PFSH: Family History Father Cystic acne Severe cystic acne with scarring. Social History Smoking and tobacco/nicotine status: never used tobacco/nicotine Substance/Drug Use: current Substance/Drug use frequency: daily Physical Exam HENMT: THROAT: no uvular edema Course Vital Signs: Vital signs: Vital Signs Temperature 98.3 F 10/22/24 13:29 Pulse Rate 93 10/22/24 13:29 Respiratory Rate 16 10/22/24 13:29 Blood Pressure 116/73 10/22/24 13:29 Pulse Oximetry 97 10/22/24 13:29 Oxygen Delivery Me thod Room Air 10/22/24 13:29 MDM - General Adult Medical Decision Making Etiology for symptoms at this time vastly broad but sounding appropriate for outpatient work up. I do not feel we need to perform emergent labs/imaging on today's visit. Will place CM referral to get him set up with primary care. Return precautions discussed. Medical Records I reviewed the patient's medical records. No radiology studies performed this visit Discharge Plan Discharge Patient Disposition: Home Clinical Impression: Paresthesias, Sensation of lump in throat Condition: Stable Prescriptions: No Action Ventolin HFA 90 mcg/actuation HFA aerosol inhaler 2 puff inhalation Q6H PRN (Reason: shortness of breath or wheezing) Qty: 8.5 0RF Discharge Orders: Discharge ED (Routine); Ordered 10/22/24 Ordered By: Maame Tim Patient Instructions: Patient Portal & Aruna Instructions Activity Restrictions/Additional Instructions: As we discussed, I think it is most appropriate at this time to initiate workup for your symptoms to the primary care office. I do not feel symptoms at this time are emergent or life-threatening in nature. I have placed a case management order so they can help set you up with a primary care provider. Print Language: Iraqi Coding Level of Care Code ED Director Of Rehabilitation for Yen Cui
[2024-10-22 14:45] VITALS: BP 160/78; PULSE 76; RESP 18; O2SAT 98
--- NOTE | 2024-10-25 09:36 | PC.NURSE ---
PCP referral sent.
== END 2024-10-22 14:46 | disposition home or self-care (01) ==
PROVIDERS: Emergency Provider Physician Assistant
DX: R20.2 Paresthesia of skin (principal); R09.A2 Foreign body sensation, throat
CPT/HCPCS: 99281